=== PATIENT | female | born 1950 | race Caucasian/White ===

== ENCOUNTER 2022-09-24 07:20 | Day surgery (SDC) | payer MEDICARE ==
[~2022-09-24 07:20] MED LIST: LACTATED RINGERS 1,000 ML IV SCH; LIDOCAINE 1% (10MG/ML) FOR IV START INTRADERMA PRN
[2022-09-24 07:46] VITALS: TEMP 97.4
[2022-09-24] MEDS ORDERED: PROPOFOL 10 MG/ML 20 ML VIAL IV ONE (08:39)
--- NOTE | 2022-09-24 08:56 | P.PCN ---
Date of Procedure: 09/24/22 Procedure(s) Performed: BRIEF HISTORY: Patient is a 72-year-old pleasant white female scheduled for an elective colonoscopy as a part of screening for colon cancer/positive cologuard. PROCEDURE PERFORMED: Colonoscopy with snare polypectomy. PREOPERATIVE DIAGNOSIS: Screening for colon cancer/positive cologuard. IV sedation per Anesthesia. PROCEDURE: After informed consent was obtained, the patient, was brought into the endoscopy unit. IV sedation was administered by Anesthesia under continuous monitoring. Digital rectal examination was normal. Initially the Olympus CF-160 flexible video colonoscope was then inserted in the rectum, gradually advanced into the cecum without any difficulty. Careful examination was performed as the scope was gradually being withdrawn. Ileocecal valve and the appendiceal orifice were visualized and appeared normal. Prep was excellent. Mucosa of the cecum, a 5 mm and 7 mm polyps removed by snare polypectomy. Rest of the ascending colon, transverse colon, descending colon, appeared normal. In the sigmoid colon there was a 1 cm flat polyp removed by snare polypectomy. Scattered sigmoid diverticulosis seen. Rest of the sigmoid colon, and rectum appeared normal. Retroflexion was performed in the rectum and no lesions were seen. The patient tolerated the procedure well. IMPRESSION: 5 mm and 7 mm cecal polyp status post polypectomy 1 cm flat sigmoid colon polyp status post polypectomy Scattered sigmoid diverticulosis RECOMMENDATIONS: Findings of this examination were discussed with the patient is well as her family. She was advised to follow with the biopsy results. If the biopsy results adenoma she can have a repeat colonoscopy in 3 years..
[2022-09-24 09:04] VITALS: RESP 18
[2022-09-24 09:33] VITALS: BP 115/76; PULSE 66
== END 2022-09-24 09:35 | disposition home or self-care (01) ==
LOC: ORWHC2ENDO 07:20
PROVIDERS: ATTEND Internal Medicine Gastroenterology
DX: K63.5 Polyp of colon (principal); K57.30 Diverticulosis of large intestine without perforation or abscess without bleeding; I10 Essential (primary) hypertension; K21.9 Gastro-esophageal reflux disease without esophagitis; Z79.899 Other long term (current) drug therapy
CPT/HCPCS: 45385; J2704; 88305

== ENCOUNTER → 2023-11-21 | Outpatient (CLI) | payer MEDICARE ==
--- NOTE | 2023-11-21 13:45 | BD ---
EXAMINATION TYPE: Axial Bone Density DATE OF EXAM: 11/21/2023 CLINICAL HISTORY: 73 years old Female. ICD-10 CODE: M89.9 DISORDER OF BONE, UNSPECIFIED Height: 62.2 Weight: 144 prior bone density at [facility] FRAX RISK QUESTIONS: Secondary Osteoporosis: no 3. Menopause before 45: no at 49 yrs old RISK FACTORS HISTORY OF: nothing to note here MEDICATIONS: bp meds, multivitamin with d and magnesium, statin for cholesterol, EXAM MEASUREMENTS: Bone mineral densitometry was performed using the [employer] System. Bone mineral density as measured about the Lumbar spine is: ----- L1-L4(G/cm2): 0.952 T Score Values are as follows: ----- L1: -1.5 ----- L2: -2.9 ----- L3: -1.6 ----- L4: -1.9 ----- L1-L4: -1.9 Z Score Values are as follows: ----- L1: 0.2 ----- L2: -1.2 ----- L3: 0.1 ----- L4: -0.2 ----- L1-L4: -0.2 Bone mineral density is her first dexa study at [facility]. Bone mineral density about the R hip (g/cm2): 0.837 Bone mineral density about the L hip (g/cm2): 0.865 T Score values are as follows: -----R Neck: -1.7 -----L Neck: -1.5 -----R Total: -1.4 -----L Total: -1.1 Z Score values are as follows: -----R Neck: 0.1 -----L Neck: 0.2 -----R Total: 0.2 -----L Total: 0.4 Bone mineral density first dexa study at [facility]. FRAX%s: The graph provided illustrates a 11.0% chance for a major osteoporotic fx and a 2.0% chance f or the hips probability for fx in 10 years time. IMPRESSION: Osteopenia (T Score between -2.5 and -1). There is slightly increased risk of fracture and the patient may be considered for treatment. Re-Screen 2-5 years. NOTE: T-SCORE=SD OF THE YOUNG ADULT MEAN.
--- NOTE | 2023-11-24 00:18 | MM ---
Reason for Exam: Screening (asymptomatic). Last mammogram was performed 2 year(s) and 4 month(s) ago. Patient History: Menarche at age 14. First Full-Term at age 24. Left ovary removed at age 52. Right ovary removed at age 52. Hysterectomy at age 52. Postmenopausal. Patient has history of breast feeding. Risk Values: Autumn 5 year model risk: 1.6%. NCI Lifetime model risk: 4.3%. Prior Study Comparison: 04/02/2020 Bilateral Screening Mammogram, [facility]. 07/16/2021 Bilateral Screening Mammogram, [facility]. Tissue Density: There are scattered areas of fibroglandular density. Findings: Analyzed By CAD. The pattern is symmetrical. Multiple scattered skin calcifications are present bilaterally No suspicious groups of microcalcifications, spiculated or lobular masses, architectural distortion or other secondary signs of malignancy are mammographically apparent. Overall Assessment: Benign, BI-RAD 2 Management: Screening Mammogram of both breasts in 1 year. A negative mammogram report should not preclude additional follow up of suspicious palpable abnormalities. Patient should continue monthly self breast exam. A clinical breast exam by your physician is recommended on an annual basis and results should be correlated with mammographic findings. Electronically signed and approved by: Eyad Brady D.O. Radiologis
== END | disposition home or self-care (01) ==
LOC: RADBDWWP 11:17
PROVIDERS: ATTEND Internal Medicine Geriatric Medicine
DX: Z12.31 Encounter for screening mammogram for malignant neoplasm of breast (principal); M81.0 Age-related osteoporosis without current pathological fracture; M85.89 Other specified disorders of bone density and structure, multiple sites; Z78.0 Asymptomatic menopausal state
CPT/HCPCS: 77063; 77067; 77080